=== PATIENT | female | born 1960 | race Asian ===

== ENCOUNTER 2016-11-10 21:40 | Emergency (ER) | payer OTHER ==
[2016-11-10 22:48] LABS: BASOPHIL % 0.4 % (0-2); RED CELL DISTRIBUTION WIDTH 12.7 % (11.5-14.5)
[2016-11-10 22:52] LABS: PLATELET COUNT 402 x10^3mcL (130-400)
[2016-11-10 22:55] LABS: CALCIUM 8.2 mg/dL (8.5-10.1); CARBON DIOXIDE 27.7 mmol/L (21-32); CHLORIDE SERUM 102 mmol/L (98-107); CREATININE SERUM 0.7 mg/dL (0.6-1.0); GFR1 > 60 mL/min; GLUCOSE SERUM 128 mg/dL (74-106); POTASSIUM SERUM 3.7 mmol/L (3.5-5.1); SODIUM SERUM 137 mmol/L (136-145)
[2016-11-10 23:18] LABS: AST/SGOT 19 U/L (15-37)
[2016-11-10 23:22] LABS: ALBUMIN 3.7 g/dL (3.4-5.0); ALKALINE PHOSPHATASE 106 U/L (46-116); BILIRUBIN TOTAL 0.28 mg/dL (0.20-1.00); TOTAL PROTEIN, SERUM 7.9 g/dL (6.4-8.2)
[2016-11-10 23:23] LABS: ALT/SGPT 28 U/L (14-59)
[2016-11-10 23:24] LABS: CK-MB 1.4 ng/mL (0-3.6)
[2016-11-11 00:26] VITALS: BP 114/78
== END 2016-11-11 00:26 | disposition left against medical advice (07) ==
LOC: ED 21:40
PROVIDERS: Emergency Medicine
DX: R07.9 Chest pain, unspecified (principal); I11.9 Hypertensive heart disease without heart failure
CPT/HCPCS: 83880; Q0092